=== PATIENT | male | born 1960 | race Native Hawaiian/Other Pacific Islander ===

== ENCOUNTER 2021-07-12 12:50 | Emergency (ER) | payer OTHER ==
[~2021-07-12] VITALS: Ht 182.9 cm; Wt 119.3 kg
[2021-07-12 13:21] LABS: PLATELET COUNT 196 K/uL (142-355)
[2021-07-12 13:34] LABS: POTASSIUM 4.5 mmol/L (3.6-5.2)
[2021-07-12 14:12] VITALS: BP 145/90; TEMP 98.2
[2021-07-14] MEDS ORDERED: LISI20TA11 PO (21:16)
[2021-07-14] MEDS ORDERED: VENLAFAXINE HYD75 MG PO (21:16)
[2021-07-14] MEDS ORDERED: GLIM4TAB PO (21:16)
[2021-07-14] MEDS ORDERED: ROWEEPRA500 MG PO (21:17)
[2021-07-14] MEDS ORDERED: CARBAMAZEPIN200 MG PO (21:18)
[2021-07-14] MEDS ORDERED: QUETIAPINE50 MG PO (21:18)
[2021-07-14] MEDS ORDERED: ROSUVASTATIN CA20 MG PO (21:19)
[2021-07-14] MEDS ORDERED: PIOGLITAZONE HY30 MG PO (21:19)
[2021-07-14] MEDS ORDERED: PANTOPRAZOLE SO40 M1 PO (21:20)
[2021-07-14] MEDS ORDERED: TOUJEO SOL300 UNIT/M SC (21:23)
[2021-07-14] MEDS ORDERED: QUETIAPINE100 MG PO (21:24)
[2021-07-14] MEDS ORDERED: DONEPEZIL HYDRO10 MG PO (21:25)
[2021-07-14] MEDS ORDERED: MEMANTINE HYDRO10 MG PO (21:25)
[2021-07-14] MEDS ORDERED: GLUC1KIT INJ (21:26)
[2021-07-14] MEDS ORDERED: CLOBETASOL0.05 % EX (21:28)
[2021-07-14] MEDS ORDERED: HYDROCODONE BIT1 TA1 PO (21:28)
[2021-07-14] MEDS ORDERED: TYLENOL325 MG PO (21:29)
[2021-07-14] MEDS ORDERED: MAGNSUS68 PO (21:30)
[2021-07-14] MEDS ORDERED: DAILY VITAMIN PO (21:31)
[2021-07-14] MEDS ORDERED: CALCIUM + D600 MG PO (21:32)
[2021-07-14] MEDS ORDERED: TRIAMCINOLON0.025 % TOP (21:33)
[2021-07-14] MEDS ORDERED: NIZORAL A-D1 % EX (21:35)
[2021-07-14] MEDS ORDERED: HYDROCORTISONE2.5 % EX (21:36)
== END 2021-07-12 14:12 | disposition still patient (30) ==
LOC: ED 12:50
PROVIDERS: Hospitalist
DX: F25.8 Other schizoaffective disorders (principal); R46.89 Other symptoms and signs involving appearance and behavior; Z11.52 Encounter for screening for COVID-19; Z04.6 Encounter for general psychiatric examination, requested by authority
CPT/HCPCS: 80053; 81000; 85027; 87635; 93005; 99283; U0003